=== PATIENT | female | born 1970 | race Hispanic/Latino ===

== ENCOUNTER 2018-06-21 01:45 | Emergency (ER) | payer MEDICARE ==
[2018-06-21] MEDS ORDERED: ASPIRIN PO ONE (02:03)
--- NOTE | 2018-06-21 02:31 | XRay Report ---
PROCEDURE: XR CHEST 1V AP TECHNIQUE: A portable upright view of the chest was obtained. HISTORY: Chest Pain COMPARISONS: None FINDINGS: The heart size and vascularity appear normal. The lungs are clear. Pleural fluid is not seen. There i s a Port-A-Cath catheter along the right chest wall with the limb in the superior vena cava. The skel etal structures do not show any acute changes. IMPRESSION: No acute cardiopulmonary process.. This document is electronically signed by Dez Welch MD., June 21 2018 02:29:16 AM ET
[2018-06-21 05:15] LABS: Basophils % (Auto) 0.4 % (0.0-1.8); Hematocrit 31.4 % (30.3-42.9); Hemoglobin 10.1 gm/dl (10.1-14.3); Mean Corpuscular HGB Conc 32 % (30-34); Mean Corpuscular Volume 72 fl (79-97); Monocytes # (Auto) 0.2 K/mm3 (0.0-0.8); Monocytes % (Auto) 3.2 % (0.0-7.3); Platelet Count 339 K/mm3 (140-440); Red Blood Count 4.36 M/mm3 (3.65-5.03); Red Cell Distribution Width 15.8 % (13.2-15.2)
[2018-06-21 05:39] LABS: BUN/Creatinine Ratio 17; Blood Urea Nitrogen 17 mg/dL (7-17); Calcium 9.2 mg/dL (8.4-10.2); Hemolysis Index 0
[2018-06-21 06:30] VITALS: BP 176/116
[2018-06-21] MEDS ORDERED: ZOFRAN IV ONE (07:30)
[2018-06-21] MEDS ORDERED: TORADOL IV ONE (07:30)
--- NOTE | 2018-06-21 07:37 | Emergency Department Report ---
Minor Respiratory - HPI Chief Complaint: Upper Respiratory Infection Stated Complaint: CHEST PAIN STOMACH PAIN Time Seen by Provider: 06/21/18 07:23 Duration: 2 Days Pain Location: Chest Minor Respiratory: Yes Able to Tolerate Fluids, Yes Cough, Yes Chest Pain (with coughing only), No Rhinorrhea, No Sore Throat, No Ear Pain, No Sick Contacts, No Hemoptysis, No Shortness of Breath, No Fever Other History: She is a 48-year-old female who presents to ED complaining of w orsening chest pain with productive cough. Patient states productive cough with green sputum. She denies fevers/chills/nausea vomiting ED Review of Systems ROS: Stated complaint: CHEST PAIN STOMACH PAIN Other details as noted in HPI Comment: All other systems reviewed and negative ED Past Medical Hx - Past Medical History Hx Congestive Heart Failure: No Hx Diabetes: Yes Hx Liver Disease: No Hx Sickle Cell Disease: No Hx Arthritis: No Hx Asthma: No Hx COPD: No Hx HIV: No Additional medical history: chronic anemia, osteomyelitis - Surgical History Hx Cholecystectomy: Yes Hx Appendectomy: Yes Additional Surgical History: right toe amputations (r/t osteomyelitis) - Social History Smoking Status: Never Smoker Substance Use Type: None - Medications Home Medications: Home Medications Medication Instructions Recorded Confirmed Last Taken Type Ondansetron [Zofran TAB] 8 mg PO Q6H PRN #20 tablet 05/28/15 04/28/18 Unknown Rx Oxycodone HCl [Roxicodone TAB] 15 mg PO Q12H #7 tablet 05/04/18 Unknown Rx Oxycodone Myristate [Xtampza ER] 18 mg PO Q12H #7 cap.spr.12 05/04/18 Unknown Rx Pantoprazole [Protonix TAB] 40 mg PO DAILY 30 Days tablet 05/04/18 Unknown Rx Insulin Glargine [Lantus VIAL] 25 units SUB-Q QHS #30 units 05/08/18 Unknown Rx Benzonatate [Tessalon Perles] 100 mg PO Q8HR #30 capsule 06/21/18 Unknown Rx Promethazine [Phenergan SUPPOS] 25 mg CO Q6H PRN #30 supp.rect 06/21/18 Unknown Rx Minor Respiratory Exam - Exam General: Vital signs noted. No distress. Alert and acting appropriately. HEENT: Yes Moist Mucous Membranes, No Pharyngeal Erythema, No Pharyngeal Exudates, No Rhinorrhea, No Conjuctival Injection, No Frontal Tenderness, No Maxillary Tenderness Ear: Neither TM Bulge, Neither TM Erythema, Neither EAC Pain, Neither EAC Discharge Neck: Yes Supple, No Adenopathy Lungs: Yes Good Air Exchange, No Wheezes, No Ronchi, No Stridor, No Cough (no ac tive coughing noted), No Labored Respirations, No Retractions, No Use of Accessory Muscles, No Other Abnormal Lung Sounds Heart: Yes Regular (port noted at right upper chest), No Murmur Abdomen: Yes Normal Bowel Sounds, No Tenderness, No Peritoneal Signs Skin: No Rash, No Edema Neurologic: Alert and oriented, no deficits. Musculoskeletal: Unremarkable. ED Course Vital Signs 06/21/18 06/21/18 01:57 06:29 Temperature 98.1 F 99 F Pulse Rate 105 H 102 H Respiratory 18 18 Rate Blood Pressure 194/127 Blood Pressure 176/116 [Left] O2 Sat by Pulse 100 99 Oximetry ED Medical Decision Making - Lab Data Result diagrams: 06/21/18 05:05 06/21/18 05:05 Laboratory Results - last 72 hr 06/21/18 06/21/18 06/21/18 05:05 05:05 06:10 WBC 6.5 RBC 4.36 Hgb 10.1 Hct 31.4 MCV 72 L MCH 23 L MCHC 32 RDW 15.8 H Plt Count 339 Lymph % (Auto) 15.0 [place] % (Auto) 3.2 Eos % (Auto) 0.0 Baso % (Auto) 0.4 Lymph # 1.0 L [place] # 0.2 Eos # 0.0 Baso # 0.0 Seg Neutrophils % 81.4 H Seg Neutrophils # 5.3 Sodium 134 L Potassium 4.0 Chloride 94.8 L Carbon Dioxide 22 Anion Gap 21 BUN 17 Creatinine 1.0 Estimated GFR 59 BUN/Creatinine Ratio 17 Glucose 218 H Calcium 9.2 Troponin T < 0.010 < 0.010 - Radiology Data Radiology results: report reviewed, image reviewed - Medical Decision Making This 48-year-old female who presents with upper respiratory infection. All labs within normal limits, chest x-ray shows no acute findings. Patient was refused Toradol and is asking for Dilaudid. I discussed with the patient has level of pain is not warranted Dilaudid administration. Patient patient ended up accepting Toradol for pain Discussed all lab results with the patient. Discussed patient will follow up with her primary care doctor. Patient was in no distress sitting comfortably on ED chair. Critical care attestation.: If time is entered above; I have spent that time in minutes in the direct care of this critically ill patient, excluding procedure time. ED Disposition Clinical Impression: Upper respiratory infection Disposition: DC-01 TO HOME OR SELFCARE Is pt being admited?: No Does the pt Need Aspirin: No Condition: Stable Instructions: Upper Respiratory Infection (ED), Viral Syndrome (ED) Additional Instructions: Make sure to follow up with the primary care physician as discussed. Take all your medications as you've been prescribed. If you have any worsening symptoms or develop new symptoms please return to ED immediately. Prescriptions: Promethazine [Phenergan SUPPOS] 25 mg CO Q6H PRN #30 supp.rect PRN Reason: N/V If Npo And No Iv Access Benzonatate [Tessalon Perles] 100 mg PO Q8HR #30 capsule Referrals: ORTIZ MEEK MD [Primary Care Provider] - 3-5 Days Forms: AMA Form, Work/School Release Form(ED) Time of Disposition: 07:44
[2018-06-21] MEDS ORDERED: FLUSH HEPARIN IV ONE (07:54)
== END 2018-06-21 08:26 | disposition home or self-care (01) ==
LOC: ED 01:45
DX: J06.9 Acute upper respiratory infection, unspecified (principal); E11.9 Type 2 diabetes mellitus without complications; Z90.49 Acquired absence of other specified parts of digestive tract
CPT/HCPCS: 36415; 71045; 80048; 84484; 85025; 93005; 93010; 96374; 96375; 99284; J1642; J1885; J2405

== ENCOUNTER 2018-11-22 15:08 | Emergency (ER) | payer MEDICARE ==
--- NOTE | 2018-11-22 17:12 | Emergency Department Report ---
ED General Adult HPI - General Chief complaint: Abdominal Pain Stated complaint: VOMITING/UTI Time Seen by Provider: 11/22/18 16:34 Source: patient, EMS (ems notes not available at time of chart dictation), RN notes reviewed, old records reviewed Mode of arrival: Stretcher Limitations: No Limitations - History of Present Illness Initial comments: This is a 48-year-old female. I have evaluated this patient in the past. The patient's past medical history includes diabetes, insulin-dependent, multiple urinary tract infections, esophageal thickening, noncompliance with diet, history of drug-seeking and manipulative behavior, in the past, has requested IV Phenergan, IV Benadryl, and IV Dilaudid. Upon review of the [place] prescription monitoring database, it appears appears that the patient has multiple narcotic prescriptions. Today, the patient presents to the ER with a complaint of dysuria, diffuse abdominal cramping, I'm reported nausea, vomiting. In addition, the patient has a distant history of Xcajqv-c-Ipdc, for iron injections. The patient denies hematemesis and bright red blood per rectum. The patient versus dysuria. She denies fever that she is aware of. While the patient has endorsed nausea and vomiting, we have not seen any episodes of nausea and vomiting in the emergency room. The patient denies other complaints. -: Gradual Location: abdomen Consistency: constant Improves with: none Worsens with: none - Related Data Previous Rx's Medication Instructions Recorded Last Taken Type Ondansetron [Zofran TAB] 8 mg PO Q6H PRN #20 tablet 05/28/15 Unknown Rx Oxycodone HCl [roxiCODONE] 15 mg PO Q12H #7 tablet 05/04/18 Unknown Rx Oxycodone Myristate [Xtampza ER] 18 mg PO Q12H #7 cap.spr.12 05/04/18 Unknown Rx Pantoprazole [Protonix TAB] 40 mg PO DAILY 30 Days tablet 05/04/18 Unknown Rx Insulin Glargine [Lantus VIAL] 25 units SUB-Q QHS #30 units 05/08/18 Unknown Rx Benzonatate [Tessalon Perles] 100 mg PO Q8HR #30 capsule 06/21/18 Unknown Rx Promethazine [Phenergan SUPPOS] 25 mg AL Q6H PRN #30 supp.rect 06/21/18 Unknown Rx Nitrofurantoin Lea/M-Cryst 100 mg PO Q12HR #14 capsule 11/22/18 Unknown Rx [Macrobid CAP] Ondansetron [Zofran Odt] 4 mg PO Q8HR PRN #15 tab.rapdis 11/22/18 Unknown Rx Phenazopyridine [Pyridium] 200 mg PO TID PRN #6 tab 11/22/18 Unknown Rx Promethazine [Phenergan SUPPOS] 50 mg AL Q6H PRN #15 supp.rect 11/22/18 Unknown Rx Allergies Allergy/AdvReac Type Severity Reaction Status Date / Time metoclopramide HCl Allergy Swelling Verified 11/22/18 15:35 [From Reglan] morphine Allergy Swelling Verified 11/22/18 15:35 piperacillin sodium Allergy Swelling Verified 11/22/18 15:35 [From Zosyn] tazobactam sodium Allergy Swelling Verified 11/22/18 15:35 [From Zosyn] ED Review of Systems ROS: Stated complaint: VOMITING/UTI Other details as noted in HPI Constitutional: malaise Eyes: denies: eye discharge ENT: denies: epistaxis Respiratory: denies: cough Cardiovascular: denies: chest pain, syncope Gastrointestinal: abdominal pain, nausea, vomiting. denies: hematemesis, melena, hematochezia Genitourinary: dysuria Musculoskeletal: arthralgia, myalgia Psychiatric: anxiety ED Past Medical Hx - Past Medical History Previous Medical History?: Yes Hx Congestive Heart Failure: No Hx Diabetes: Yes Hx Liver Disease: No Hx Sickle Cell Disease: No Hx Arthritis: No Hx Asthma: No Hx COPD: No Hx HIV: No Additional medical history: chronic anemia, osteomyelitis - Surgical History Past Surgical History?: Yes Hx Cholecystectomy: Yes Hx Appendectomy: Yes Additional Surgical History: right toe amputations (r/t osteomyelitis) - Social History Smoking Status: Never Smoker Substance Use Type: None - Medications Home Medications: Home Medications Medication Instructions Recorded Confirmed Last Taken Type Ondansetron [Zofran TAB] 8 mg PO Q6H PRN #20 tablet 05/28/15 04/28/18 Unknown Rx Oxycodone HCl [roxiCODONE] 15 mg PO Q12H #7 tablet 05/04/18 Unknown Rx Oxycodone Myristate [Xtampza ER] 18 mg PO Q12H #7 cap.spr.12 05/04/18 Unknown Rx Pantoprazole [Protonix TAB] 40 mg PO DAILY 30 Days tablet 05/04/18 Unknown Rx Insulin Glargine [Lantus VIAL] 25 units SUB-Q QHS #30 units 05/08/18 Unknown Rx Benzonatate [Tessalon Perles] 100 mg PO Q8HR #30 capsule 06/21/18 Unknown Rx Promethazine [Phenergan SUPPOS] 25 mg AL Q6H PRN #30 supp.rect 06/21/18 Unknown Rx Nitrofurantoin Lea/M-Cryst 100 mg PO Q12HR #14 capsule 11/22/18 Unknown Rx [Macrobid CAP] Ondansetron [Zofran Odt] 4 mg PO Q8HR PRN #15 tab.rapdis 11/22/18 Unknown Rx Phenazopyridine [Pyridium] 200 mg PO TID PRN #6 tab 11/22/18 Unknown Rx Promethazine [Phenergan SUPPOS] 50 mg AL Q6H PRN #15 supp.rect 11/22/18 Unknown Rx ED Physical Exam - General Limitations: No Limitations General appearance: alert, anxious, obese - Head Head exam: Present: atraumatic, normocephalic - Eye Eye exam: Present: normal appearance, EOMI. Absent: nystagmus - ENT ENT exam: Present: normal exam, normal orophraynx, mucous membranes moist, normal external ear exam - Neck Neck exam: Present: normal inspection, full ROM. Absent: tenderness, meningismus - Respiratory Respiratory exam: Present: normal lung sounds bilaterally. Absent: respiratory distress - Cardiovascular Cardiovascular Exam: Present: regular rate, normal rhythm, normal heart sounds. Absent: bradycardia, tachycardia, irregular rhythm, systolic murmur, diastolic murmur, rubs, gallop - GI/Abdominal GI/Abdominal exam: Present: soft. Absent: distended, tenderness, guarding, rebound, rigid, pulsatile mass - Extremities Exam Extremities exam: Present: normal inspection, full ROM, other (2+ pulses noted in the bilateral upper extremities. There is no long bony tenderness. The muscular compartments are soft. There is no evidence of redness, pus, streaking, or tense compartments in the upper extremities.). Absent: pedal edema, calf tenderness - Back Exam Back exam: Present: normal inspection, full ROM. Absent: tenderness, CVA tenderness (R), CVA tenderness (L), paraspinal tenderness, vertebral tenderness - Neurological Exam Neurological exam: Present: alert, other (Extraocular movements intact. Tongue midline. No facial droop. Facial sensation intact to light touch in the V1, V2, V3 distribution bilaterally. 5 and 5 strength in 4 extremities.. Sensation is intact to light touch in 4 extremities.). Absent: motor sensory deficit - Psychiatric Psychiatric exam: Present: anxious - Skin Skin exam: Present: warm, dry, intact, normal color. Absent: rash ED Course Vital Signs 11/22/18 11/22/18 11/22/18 16:25 17:20 20:09 Temperature 97.6 F Pulse Rate 74 88 Respiratory 16 18 Rate Blood Pressure 162/104 143/81 [Left] O2 Sat by Pulse 96 98 Oximetry - Reevaluation(s) Reevaluation #1: 11/22/18 17:12 [place] sexer aware Filled ID Written Drug QTY Days Prescriber Rx # Pharmacy * Refills Daily Dose Pymt Type [facility] 11/09/2018 2 11/02/2018 OXYCODONE HCL 15 MG TABLET 60.0 30 K[facility] GRE [id number] [facility] ([id number]) 0 45.0 [facility] [place] 11/09/2018 2 11/02/2018 XTAMPZA ER 27 MG CAPSULE 60.0 30 K[facility] GRE [id number] [facility] ([id number]) 0 81.0 [place] 10/12/2018 2 10/12/2018 OXYCODONE HCL 15 MG TABLET 60.0 30 [facility]I GRE [id number] [facility] ([id number]) 0 45.0 [place] 10/12/2018 2 10/12/2018 XTAMPZA ER 27 MG CAPSULE 60.0 30 [facility] GRE [id number] [facility] ([id number]) 0 81.0 [place] 09/14/2018 2 09/14/2018 OXYCODONE HCL 15 MG TABLET 60.0 30 KI GRE [id number] [facility] ([id number]) 0 45.0 [place] 09/14/2018 2 09/14/2018 XTAMPZA ER 27 MG CAPSULE 60.0 30 [facility] GRE [id number] [facility] ([id number]) 0 81.0 [place] 08/17/2018 2 08/17/2018 OXYCODONE HCL 15 MG TABLET 60.0 30 KI GRE [id number] [facility] ([id number]) 0 45.0 [place] 08/17/2018 2 08/17/2018 XTAMPZA ER 27 MG CAPSULE 60.0 30 [facility] GRE [id number] [facility] ([id number]) 0 81.0 [place] 07/20/2018 2 07/20/2018 OXYCODONE HCL 15 MG TABLET 60.0 30 [facility] GRE [id number] [facility] ([id number]) 0 45.0 [place] 07/20/2018 2 07/20/2018 XTAMPZA ER 27 MG CAPSULE 60.0 30 [facility] GRE [id number] [facility] ([id number]) 0 81.0 [place] 06/22/2018 2 06/22/2018 OXYCODONE HCL 15 MG TABLET 60.0 30 K[facility] GRE [id number] [facility] ([id number]) 0 45.0 [place] 06/22/2018 2 06/22/2018 XTAMPZA ER 18 MG CAPSULE 60.0 30 KI GRE [id number] [facility] ([id number]) 0 54.0 [place] 05/25/2018 1 05/25/2018 OXYCODONE HCL 15 MG TABLET 60.0 30 KI GRE [id number] [facility] ([id number]) 0 45.0 [place] 05/25/2018 1 05/25/2018 XTAMPZA ER 18 MG CAPSULE 60.0 30 KI GRE [id number] [facility] ([id number]) 0 54.0 [place] 04/27/2018 1 04/27/2018 OXYCODONE HCL 15 MG TABLET 60.0 30 KI GRE [id number] [facility] ([id number]) 0 45.0 [place] 04/27/2018 1 04/27/2018 XTAMPZA ER 18 MG CAPSULE 60.0 30 KI GRE [id number] [facility] ([id number]) 0 54.0 [place] 03/31/2018 1 10/28/2017 TRAMADOL HCL 50 MG TABLET 200.0 25 KI GRE [id number] [facility] ([id number]) 0 40.0 [place] ED Medical Decision Making - Lab Data Result diagrams: 11/22/18 17:30 11/22/18 17:30 Vital Signs 11/22/18 11/22/18 16:25 17:20 Pulse Rate 74 88 Respiratory 16 18 Rate Blood Pressure 162/104 143/81 [Left] O2 Sat by Pulse 96 98 Oximetry Lab Results 11/22/18 11/22/18 11/22/18 Range/Units 17:30 17:30 17:30 WBC 9.7 (4.5-11.0) K/mm3 RBC 3.76 (3.65-5.03) M/mm3 Hgb 7.4 L (10.1-14.3) gm/dl Hct 24.2 L (30.3-42.9) % MCV 65 L (79-97) fl MCH 20 L (28-32) pg MCHC 31 (30-34) % RDW 18.4 H (13.2-15.2) % Plt Count 444 H (140-440) K/mm3 Lymph % (Auto) 18.4 (13.4-35.0) % Lea % (Auto) 3.7 (0.0-7.3) % Eos % (Auto) 0.1 (0.0-4.3) % Baso % (Auto) 1.0 (0.0-1.8) % Lymph # 1.8 (1.2-5.4) K/mm3 Lea # 0.4 (0.0-0.8) K/mm3 Eos # 0.0 (0.0-0.4) K/mm3 Baso # 0.1 (0.0-0.1) K/mm3 Seg Neutrophils % 76.8 H (40.0-70.0) % Seg Neutrophils # 7.4 (1.8-7.7) K/mm3 Sodium 135 L (137-145) mmol/L Potassium 3.8 (3.6-5.0) mmol/L Chloride 96.5 L (98-107) mmol/L Carbon Dioxide 27 (22-30) mmol/L Anion Gap 15 mmol/L BUN 19 H (7-17) mg/dL Creatinine 1.1 (0.7-1.2) mg/dL Estimated GFR 53 ml/min BUN/Creatinine Ratio 17 % Glucose 207 H (65-100) mg/dL Calcium 8.9 (8.4-10.2) mg/dL Magnesium 1.70 (1.7-2.3) mg/dL Total Bilirubin 0.20 (0.1-1.2) mg/dL AST 12 (5-40) units/L ALT < 5 L (7-56) units/L Alkaline Phosphatase 101 (35-129) units/L Total Creatine Kinase 17 L (30-135) units/L Total Protein 7.4 (6.3-8.2) g/dL Albumin 3.2 L (3.9-5) g/dL Albumin/Globulin Ratio 0.8 % HCG, Quant (0-4) mIU/mL Urine Color (Yellow) Urine Turbidity (Clear) Urine pH (5.0-7.0) Ur Specific Riner (1.003-1.030) Urine Protein (Negative) mg/dL Urine Glucose (UA) (Negative) mg/dL Urine Ketones (Negative) mg/dL Urine Blood (Negative) Urine Nitrite (Negative) Urine Bilirubin (Negative) Urine Urobilinogen (<2.0) mg/dL Ur Leukocyte Esterase (Negative) Urine WBC (Auto) (0.0-6.0) /HPF Urine RBC (Auto) (0.0-6.0) /HPF U Epithel Cells (Auto) (0-13.0) /HPF Urine Bacteria (Auto) (Negative) /HPF Urine WBC Clumps /HPF Hyaline Casts /LPF Urine Mucus /HPF 11/22/18 11/22/18 Range/Units 17:30 17:50 WBC (4.5-11.0) K/mm3 RBC (3.65-5.03) M/mm3 Hgb (10.1-14.3) gm/dl Hct (30.3-42.9) % MCV (79-97) fl MCH (28-32) pg MCHC (30-34) % RDW (13.2-15.2) % Plt Count (140-440) K/mm3 Lymph % (Auto) (13.4-35.0) % [place] % (Auto) (0.0-7.3) % Eos % (Auto) (0.0-4.3) % Baso % (Auto) (0.0-1.8) % Lymph # (1.2-5.4) K/mm3 [place] # (0.0-0.8) K/mm3 Eos # (0.0-0.4) K/mm3 Baso # (0.0-0.1) K/mm3 Seg Neutrophils % (40.0-70.0) % Seg Neutrophils # (1.8-7.7) K/mm3 Sodium (137-145) mmol/L Potassium (3.6-5.0) mmol/L Chloride (98-107) mmol/L Carbon Dioxide (22-30) mmol/L Anion Gap mmol/L BUN (7-17) mg/dL Creatinine (0.7-1.2) mg/dL Estimated GFR ml/min BUN/Creatinine Ratio % Glucose (65-100) mg/dL Calcium (8.4-10.2) mg/dL Magnesium (1.7-2.3) mg/dL Total Bilirubin (0.1-1.2) mg/dL AST (5-40) units/L ALT (7-56) units/L Alkaline Phosphatase (35-129) units/L Total Creatine Kinase (30-135) units/L Total Protein (6.3-8.2) g/dL Albumin (3.9-5) g/dL Albumin/Globulin Ratio % HCG, Quant 0.601 (0-4) mIU/mL Urine Color Iris (Yellow) Urine Turbidity Cloudy (Clear) Urine pH 5.0 (5.0-7.0) Ur Specific [place] 1.023 (1.003-1.030) Urine Protein >500 (Negative) mg/dL Urine Glucose (UA) Neg (Negative) mg/dL Urine Ketones Tr (Negative) mg/dL Urine Blood Neg (Negative) Urine Nitrite Neg (Negative) Urine Bilirubin Neg (Negative) Urine Urobilinogen 2.0 (<2.0) mg/dL Ur Leukocyte Esterase Mod (Negative) Urine WBC (Auto) > 182.0 H (0.0-6.0) /HPF Urine RBC (Auto) 2.0 (0.0-6.0) /HPF U Epithel Cells (Auto) 33.0 H (0-13.0) /HPF Urine Bacteria (Auto) 1+ (Negative) /HPF Urine WBC Clumps 2+ /HPF Hyaline Casts 51 /LPF Urine Mucus 3+ /HPF - Radiology Data Radiology results: report reviewed, image reviewed Print Report Referring Physician: JOSE JAMES Patient Name: EMIR HERRERA Date of : 1970 Sex: Female Report Date: 2018-11-22 Report Status: Finalized Findings [facility] [address] [place] [address] Cat Scan Report Signed Patient: EMIR HERRERA MR#: [id number] : 1970 Acct:[id number] Age/Sex: 48 / F ADM Date: 11/22/18 Loc: ED Attendin g Dr: Ordering Physician: JOSE JAMES MD Date of Service: 11/22/18 Procedure(s): CT abdomen pelvis wo con Accession Number(s): [id number] cc: JOSE JAMES MD CT of the abdomen and pelvis without contrast INDICATION: Abdominal pain COMPARISON: 04/28/2018 FINDINGS: Lung bases are clear. The liver, spleen, pancreas, adrenal glands and kidneys show no significant abnormalities and are unchanged. Gallbladder has been removed. No biliary tree dilation. No fluid or adenopathy in the upper abdomen. CT of the pelvis shows apparent appendectomy. Uterus is enlarged and lobular likely due to fibroids but this appearance is unchanged. There is 2 cm left ovarian cyst without free fluid. No diverticulosis or diverticulitis. No hernia or bowel obstruction. No significant skeletal lesion. IMPRESSION: No acute abnormality and no significant change. Automated exposure control was utilized to diminish radiation dose. Signer Name: Royal Napier MD Signed: 11/22/2018 7:37 PM Workstation Name: [id number] Transcribed By: KALI Dictated By: Royal Napier MD Electronically Authenticated By: Royal Napier MD Signed Date/Time: 11/22/18 193 - Medical Decision Making Differential diagnosis, including not limited to: Urinary tract infection, cyclic vomiting syndrome, narcotic bowel syndrome, narcotic dependent, constipation, obstruction Assessment and plan: 48-year-old female who primarily endorses dysuria, abdominal pain, nausea and vomiting. After review of her old chart, and review of the [place] prescription monitoring database, including specific documentation and a prior discharge summary with advice to not dispense intravenous narcotics, we informed the patient that we would be very happy to treat her with nonnarcotic nonsedating [id number] pain medicine. Patient was offered multiple nonnarcotic pain medications which she declined. No active vomiting has been noted in the emergency room. Urinalysis is contaminated, however, given her history of dysuria, we will treat empirically for presumed cystitis. She does not have a fever, there is no CVA tenderness, and a CT scan of the abdomen and pelvis was negative for acute findings. The patient is suitable for a trial of oral outpatient antibiotic management. Patie nt suitable for Macrobid, she can take [id number] Tylenol or ibuprofen as needed for pain, and she'll be discharged with as needed rectal Phenergan, and Zofran for nausea, vomiting. Review of old cultures demonstrate sensitivity to Macrobid Temperature 97.6 degrees. Critical care attestation.: If time is entered above; I have spent that time in minutes in the direct care of this critically ill patient, excluding procedure time. ED Disposition Clinical Impression: Dysuria, Narcotic dependence, Chronic abdominal pain Disposition: TO HOME OR SELFCARE Is pt being admited?: No Does the pt Need Aspirin: No Condition: Stable Instructions: Abdominal Pain (ED) Additional Instructions: Take the antibiotics as directed. Take nausea medication as needed/directed. Cultures were sent today, and results of the available in the next 3-5 days. Have your primary care doctor contact the medical records department to obtain culture results. Follow up with the primary care doctor within the next week for repeat checkup/evaluation. Laboratory studies and CT scan of the abdomen and pelvis today did not demonstrate any emergent condition that would require hospitalization, however, multiple nonemergent abnormalities were noted, which should be followed up by her primary care doctor within the recommended timeframe. Return to the emergency room right away with new, worsening or different symptoms, or symptoms not present on the initial emergency room eval uation. Recommend following up with her pain specialist for the escalation of chronic narcotic/opioid therapy. Long-term consumption of narcotic and opioid therapy may cause worsening pain, dependence, addiction, and can cause long-term complications, such as disability, , paralysis, loss of quality of life. Prescriptions: Nitrofurantoin Lea/M-Cryst [Macrobid CAP] 100 mg PO Q12HR #14 capsule Promethazine [Phenergan SUPPOS] 50 mg AL Q6H PRN #15 supp.rect PRN Reason: Nausea Phenazopyridine [Pyridium] 200 mg PO TID PRN #6 tab PRN Reason: Pain , Severe (7-10) Ondansetron [Zofran Odt] 4 mg PO Q8HR PRN #15 tab.rapdis PRN Reason: Nausea Referrals: FATMATA CLAUDIO MD [Primary Care Provider] - 3-5 Days
[2018-11-22] MEDS ORDERED: HALDOL IM ONE (17:19)
[2018-11-22] MEDS ORDERED: CARAFATE PO ONE (17:19)
[2018-11-22] MEDS ORDERED: ZOSTRIX HP TP STA (17:19)
[2018-11-22] MEDS ORDERED: PEPCID PO ONE (17:19)
[2018-11-22] MEDS ORDERED: TYLENOL PO ONE (17:19)
[2018-11-22 17:21] VITALS: BP 143/81
[2018-11-22 18:01] LABS: Basophils # (Auto) 0.1 K/mm3 (0.0-0.1); Eosinophils % (Auto) 0.1 % (0.0-4.3); Hematocrit 24.2 % (30.3-42.9); Hemoglobin 7.4 gm/dl (10.1-14.3); Lymphocytes # (Auto) 1.8 K/mm3 (1.2-5.4); Lymphocytes % (Auto) 18.4 % (13.4-35.0); Mean Corpuscular HGB Conc 31 % (30-34); Monocytes # (Auto) 0.4 K/mm3 (0.0-0.8); Monocytes % (Auto) 3.7 % (0.0-7.3); Platelet Count 444 K/mm3 (140-440); Red Blood Count 3.76 M/mm3 (3.65-5.03); Red Cell Distribution Width 18.4 % (13.2-15.2)
[2018-11-22 18:02] LABS: Mean Corpuscular Volume 65 fl (79-97)
[2018-11-22 18:08] LABS: Bacteria,Urine 1+ /HPF (Negative); Bilirubin,Urine NEG (Negative); Blood,Urine NEG (Negative); Color,Urine Amber (Yellow); Hyaline Casts,Urine 51 /LPF; Mucus,Urine 3+ /HPF
[2018-11-22 18:17] LABS: Protein,Urine >500 mg/dL (Negative); WBC,Urine > 182.0 /HPF (0.0-6.0)
[2018-11-22 18:26] LABS: Albumin 3.2 g/dL (3.9-5); BUN/Creatinine Ratio 17; Blood Urea Nitrogen 19 mg/dL (7-17); Calcium 8.9 mg/dL (8.4-10.2); Hemolysis Index 6
[2018-11-22 18:30] LABS: Alanine Aminotransferase < 5 units/L (7-56)
--- NOTE | 2018-11-22 19:41 | Cat Scan Report ---
CT of the abdomen and pelvis without contrast INDICATION: Abdominal pain COMPARISON: 04/28/2018 FINDINGS: Lung bases are clear. The liver, spleen, pancreas, adrenal glands and kidneys show no signi ficant abnormalities and are unchanged. Gallbladder has been removed. No biliary tree dilation. No fl uid or adenopathy in the upper abdomen. CT of the pelvis shows apparent appendectomy. Uterus is enlarged and lobular likely due to fibroids b ut this appearance is unchanged. There is 2 cm left ovarian cyst without free fluid. No diverticulosi s or diverticulitis. No hernia or bowel obstruction. No significant skeletal lesion. IMPRESSION: No acute abnormality and no significant change. Automated exposure control was utilized to diminish radiation dose. Signer Name: Royal Napier MD Signed: 11/22/2018 7:37 PM Workstation Name: [id number]
[2018-11-22] MEDS ORDERED: FLUSH HEPARIN IV ONE ×2 (20:54→20:58)
== END 2018-11-22 21:00 | disposition home or self-care (01) ==
LOC: ED 15:08
DX: N39.0 Urinary tract infection, site not specified (principal); R10.84 Generalized abdominal pain; R11.2 Nausea with vomiting, unspecified; F17.210 Nicotine dependence, cigarettes, uncomplicated; E11.9 Type 2 diabetes mellitus without complications; Z88.8 Allergy status to other drugs, medicaments and biological substances; Z88.5 Allergy status to narcotic agent; Z79.4 Long term (current) use of insulin; Z79.899 Other long term (current) drug therapy; Z90.49 Acquired absence of other specified parts of digestive tract; Z89.421 Acquired absence of other right toe(s)
CPT/HCPCS: 36415; 74176; 80053; 81001; 82550; 83735; 84702; 85025; 87076; 87086; 87186; 96372; 99285; J1630; J1642